=== PATIENT | female | born 1995 | race African-American/Black ===

== ENCOUNTER 2018-02-19 23:25 | Emergency (ER) | payer OTHER ==
[~2018-02-19] VITALS: Ht 149.9 cm; Wt 63.5 kg
[2018-02-20] MEDS ORDERED: BACTROBAN NASAL1 GM NASAL (00:21)
== END 2018-02-20 00:35 | disposition home or self-care (01) ==
LOC: ER 23:25
DX: J34.89 Other specified disorders of nose and nasal sinuses (principal)

== ENCOUNTER 2020-08-29 12:21 | Emergency (ER) | payer OTHER ==
[~2020-08-29] VITALS: Ht 149.9 cm; Wt 68.0 kg
[~2020-08-29 12:21] MED LIST: BACTROBAN NASAL1 GM NASAL
[2020-08-29 14:45] VITALS: BP 107/58
== END 2020-08-29 14:47 | disposition home or self-care (01) ==
LOC: ER 12:21
DX: L50.9 Urticaria, unspecified (principal); T78.40XA Allergy, unspecified, initial encounter; X58.XXXA Exposure to other specified factors, initial encounter